=== PATIENT | male | born 1960 | race Hispanic/Latino ===

== ENCOUNTER 2016-05-23 15:08 | Emergency (ER) | payer SELFPAY ==
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
[2016-05-23 16:42] LABS: Alanine Aminotransferase 180 units/L (7-56); Albumin/Globulin Ratio 0.9 %; Alkaline Phosphatase 76 units/L (35-129); BUN/Creatinine Ratio 11.66; Bilirubin,Total 0.8 mg/dL (0.1-1.2); Blood Urea Nitrogen 7 mg/dL (9-20); Calcium 8.8 mg/dL (8.4-10.2); Carbon Dioxide 20 mmol/L (22-30); Chloride 106.9 mmol/L (98-107); Glucose 97 mg/dL (75-100); Potassium 4.3 mmol/L (3.6-5.0); Sodium 142 mmol/L (137-145); Total Protein 8.6 g/dL (6.3-8.2)
[2016-05-23 16:46] LABS: Anion Gap 19 mmol/L
[2016-05-23 17:04] LABS: Urine Drugs of Abuse Note Disclamer
[2016-05-23 17:14] LABS: Bilirubin,Urine NEG (Negative); Blood,Urine NEG (Negative); Ketones,Urine NEG (Negative); Leukocyte Esterase,Urine NEG (Negative); Nitrite,Urine NEG (Negative); Protein,Urine <15 mg/dL mg/dL (Negative); Urobilinogen,Urine < 2.0 mg/dL (<2.0)
--- NOTE | 2016-05-23 17:33 | Emergency Department Report ---
HPI - General Chief Complaint: Psych Time Seen by Provider: 05/23/16 15:44 - HPI HPI: Room 8 The patient is a 55-year-old male presenting with a chief complaint of homicidal ideation. The patient states he came to the emergency department because he wants to kill people. When asked how long he has felt this way the patient states "I've wanted to kill people since 2013." The patient states there is not one person in particularly he would like to kill but just "people" in general. Patient denies suicidal ideation but does state "I just want to give up." Patient states if he wanted to sleep and did not wake up will be okay with him. Patient denies any active attempts at harming himself but mentioned he did have a plan to overdose Location: Mental state Duration: [see above] Quality: Homicidal Severity: Severe Modifying factors: [see above] Context: [see above] Mode of transportation: [not driving] ED Past Medical Hx - Past Medical History Previous Medical History?: No Hx Psychiatric Treatment: Yes (schizophrenia, depression, anxiety) - Surgical History Past Surgical History?: No Additional Surgical History: Peptic ulcer surgery, esophagus repair, right lower extremity surgery from nail gun injury - Family History Family history: no significant - Social History Smoking Status: Former Smoker Substance Use Type: None (denies illicit drug use), Alcohol (several beers daily ) - Medications Home Medications: Home Medications Medication Instructions Recorded Confirmed Last Taken Type Venlafaxine [Effexor] 75 mg PO AMHY 02/25/13 05/23/16 02/25/13 History Venlafaxine HCl [Effexor Xr] 150 mg PO HS 05/23/16 05/23/16 Unknown History ED Review of Systems ROS: Stated complaint: MH EVAL Other details as noted in HPI Comment: All other systems reviewed and negative Constitutional: denies: chills, fever Eyes: denies: eye pain, eye discharge, vision change ENT: denies: ear pain, throat pain Respiratory: denies: cough, shortness of breath, wheezing Cardiovascular: denies: chest pain, palpitations Endocrine: no symptoms reported Gastrointestinal: denies: abdominal pain, nausea, diarrhea Genitourinary: denies: urgency, dysuria Musculoskeletal: denies: back pain, joint swelling, arthralgia Skin: denies: rash, lesions Neurological: denies: headache, weakness, paresthesias Psychiatric: homicidal thoughts, suicidal thoughts Hematological/Lymphatic: denies: easy bleeding, easy bruising Physical Exam - Physical Exam Vital Signs: Vital Signs 05/23/16 15:23 Pulse Rate 76 Respiratory 16 Rate Blood Pressure 131/91 O2 Sat by Pulse 98 Oximetry Physical Exam: GENERAL: The patient is well-developed well-nourished male sitting on stretcher not appearing to be in acute distress. [] HEENT: Normocephalic. Atraumatic. Extraocular motions are intact. Patient has moist mucous membranes. NECK: Supple. Trachea midline CHEST/LUNGS: Clear to auscultation. There is no respiratory distress noted. HEART/CARDIOVASCULAR: Regular. There is no tachycardia. There is no gallop rub or murmur. ABDOMEN: Abdomen is soft, nontender. Patient has normal bowel sounds. There is no abdominal distention. SKIN: There is no rash. There is no diaphoresis. NEURO: The patient is awake, alert, and oriented. The patient is cooperative. The patient has normal speech MUSCULOSKELETAL: There is no evidence of acute injury. ED Course Vital Signs 05/23/16 15:23 Pulse Rate 76 Respiratory 16 Rate Blood Pressure 131/91 O2 Sat by Pulse 98 Oximetry ED Medical Decision Making - Lab Data Result diagrams: 05/23/16 16:03 Laboratory Tests 05/23/16 05/23/16 05/23/16 16:03 16:03 16:03 Sodium 142 Potassium 4.3 Chloride 106.9 Carbon Dioxide 20 L Anion Gap 19 BUN 7 L Creatinine 0.6 L Estimated GFR > 60 BUN/Creatinine Ratio 11.66 Glucose 97 Calcium 8.8 Total Bilirubin 0.8 AST 257 H ALT 180 H Alkaline Phosphatase 76 Total Protein 8.6 H Albumin 4.0 Albumin/Globulin Ratio 0.9 TSH 3.090 Urine Color Urine Turbidity Urine pH Ur Specific [place] Urine Protein Urine Glucose (UA) Urine Ketones Urine Blood Urine Nitrite Urine Bilirubin Urine Urobilinogen Ur Leukocyte Esterase Urine WBC (Auto) Urine RBC (Auto) Salicylates Urine Opiates Screen Urine Methadone Screen Acetaminophen Ur Barbiturates Screen Ur Phencyclidine Scrn Ur Amphetamines Screen U Benzodiazepines Scrn Urine Cocaine Screen U Marijuana (THC) Screen Drugs of Abuse Note Plasma/Serum Alcohol 0.31 H 01/24/17 01/24/17 01/24/17 16:03 16:03 16:50 Sodium Potassium Chloride Carbon Dioxide Anion Gap BUN Creatinine Estimated GFR BUN/Creatinine Ratio Glucose Calcium Total Bilirubin AST ALT Alkaline Phosphatase Total Protein Albumin Albumin/Globulin Ratio TSH Urine Color Straw Urine Turbidity Clear Urine pH 5.0 Ur Specific [place] 1.002 L Urine Protein <15 mg/dl Urine Glucose (UA) Neg Urine Ketones Neg Urine Blood Neg Urine Nitrite Neg Urine Bilirubin Neg Urine Urobilinogen < 2.0 Ur Leukocyte Esterase Neg Urine WBC (Auto) 0.0 Urine RBC (Auto) 1.0 Salicylates < 0.3 L Urine Opiates Screen Urine Methadone Screen Acetaminophen < 15.0 Ur Barbiturates Screen Ur Phencyclidine Scrn Ur Amphetamines Screen U Benzodiazepines Scrn Urine Cocaine Screen U Marijuana (THC) Screen Drugs of Abuse Note Plasma/Serum Alcohol 05/23/16 16:50 Sodium Potassium Chloride Carbon Dioxide Anion Gap BUN Creatinine Estimated GFR BUN/Creatinine Ratio Glucose Calcium Total Bilirubin AST ALT Alkaline Phosphatase Total Protein Albumin Albumin/Globulin Ratio TSH Urine Color Urine Turbidity Urine pH Ur Specific [place] Urine Protein Urine Glucose (UA) Urine Ketones Urine Blood Urine Nitrite Urine Bilirubin Urine Urobilinogen Ur Leukocyte Esterase Urine WBC (Auto) Urine RBC (Auto) Salicylates Urine Opiates Screen Presumptive negative Urine Methadone Screen Presumptive negative Acetaminophen Ur Barbiturates Screen Presumptive negative Ur Phencyclidine Scrn Presumptive negative Ur Amphetamines Screen Presumptive negative U Benzodiazepines Scrn Presumptive negative Urine Cocaine Screen Presumptive negative U Marijuana (THC) Screen Presumptive negative Drugs of Abuse Note Disclamer Plasma/Serum Alcohol - Differential Diagnosis schizophrenia, homicidal ideation Critical care attestation.: If time is entered above; I have spent that time in minutes in the direct care of this critically ill patient, excluding procedure time. ED Disposition Clinical Impression: Homicidal ideation, Alcoholic hepatitis, Alcohol intoxication Disposition: DC/TX PSY HOSP/PSY UNIT Is pt being admited?: No Does the pt Need Aspirin: No Condition: Serious Time of Disposition: 17:37 (awaiting acceptance)
[2016-05-23] MEDS ORDERED: VITAMIN B-1 100 MG, FOLVITE 1 MG, INFUVITE 10 ML, MAGNESIUM SULFATE 2 GM in NACL 0.9% 1... IV ONE (19:16)
--- NOTE | 2016-05-25 19:15 | Emergency Department Report ---
Blank Doc - Documentation Documentation: Vital Signs - 24 hr 05/24/16 05/25/16 05/25/16 19:55 10:28 10:56 Temperature 98.2 F 97.7 F Pulse Rate 72 57 L Respiratory 16 18 18 Rate Blood Pressure 132/79 114/94 [Left] O2 Sat by Pulse 96 98 98 Oximetry Vital signs reviewed. No events reported. Awaiting placement
--- NOTE | 2016-05-27 18:09 | Event Note ---
Date: 05/27/16 No events. Patient awaiting psychiatric placement. Vital Signs 05/23/16 05/23/16 05/23/16 15:23 17:26 18:17 Temperature 98.4 F Pulse Rate 76 65 Respiratory 16 20 14 Rate Blood Pressure 131/91 Blood Pressure 140/62 [Left] O2 Sat by Pulse 98 98 100 Oximetry 05/23/16 05/23/16 05/23/16 19:15 19:30 19:46 Temperature Pulse Rate 50 L 63 57 L Respiratory 12 15 14 Rate Blood Pressure Blood Pressure [Left] O2 Sat by Pulse 96 93 93 Oximetry 05/23/16 05/23/16 05/23/16 19:55 20:00 20:16 Temperature 97.6 F Pulse Rate 66 58 L 69 Respiratory 18 14 15 Rate Blood Pressure Blood Pressure 113/76 [Left] O2 Sat by Pulse 96 93 93 Oximetry 05/23/16 05/23/16 05/23/16 20:30 20:46 21:00 Temperature Pulse Rate 58 L 61 56 L Respiratory 14 14 15 Rate Blood Pressure Blood Pressure [Left] O2 Sat by Pulse 94 89 93 Oximetry 05/23/16 05/23/16 05/23/16 21:16 21:30 21:46 Temperature Pulse Rate 64 69 71 Respiratory 14 14 15 Rate Blood Pressure Blood Pressure [Left] O2 Sat by Pulse 89 89 89 Oximetry 05/23/16 05/23/16 05/23/16 22:00 22:16 22:30 Temperature Pulse Rate 68 65 68 Respiratory 14 14 14 Rate Blood Pressure Blood Pressure [Left] O2 Sat by Pulse 92 92 93 Oximetry 05/23/16 05/23/16 05/23/16 22:46 23:00 23:16 Temperature Pulse Rate 64 63 63 Respiratory 14 14 15 Rate Blood Pressure Blood Pressure [Left] O2 Sat by Pulse 89 91 89 Oximetry 05/23/16 05/23/16 05/24/16 23:30 23:46 00:00 Temperature Pulse Rate 65 73 70 Respiratory 14 14 14 Rate Blood Pressure Blood Pressure [Left] O2 Sat by Pulse 92 91 92 Oximetry 05/24/16 05/24/16 05/24/16 00:16 00:30 00:46 Temperature Pulse Rate 76 79 73 Respiratory 17 18 19 Rate Blood Pressure Blood Pressure [Left] O2 Sat by Pulse 93 92 93 Oximetry 01/05/24/16 05/24/16 01:00 01:15 01:30 Temperature Pulse Rate 74 66 65 Respiratory 15 17 19 Rate Blood Pressure 132/78 119/71 Blood Pressure [Left] O2 Sat by Pulse 92 94 93 Oximetry 05/24/16 05/24/16 05/24/16 01:45 02:00 02:15 Temperature Pulse Rate Respiratory 14 16 12 Rate Blood Pressure 121/75 128/76 120/75 Blood Pressure [Left] O2 Sat by Pulse 92 95 92 Oximetry 05/24/16 05/24/16 05/24/16 02:30 02:45 03:00 Temperature Pulse Rate Respiratory 12 14 14 Rate Blood Pressure 114/65 118/64 111/66 Blood Pressure [Left] O2 Sat by Pulse 90 89 92 Oximetry 05/24/16 05/24/16 05/24/16 03:15 03:30 03:45 Temperature Pulse Rate Respiratory 17 14 16 Rate Blood Pressure 116/61 116/61 112/72 Blood Pressure [Left] O2 Sat by Pulse 91 90 89 Oximetry 05/24/16 05/24/16 05/24/16 04:00 04:15 04:30 Temperature Pulse Rate 77 Respiratory 19 16 17 Rate Blood Pressure 131/76 115/70 128/73 Blood Pressure [Left] O2 Sat by Pulse 90 91 90 Oximetry 05/24/16 05/24/16 05/24/16 04:45 05:00 05:15 Temperature Pulse Rate 73 65 62 Respiratory 14 16 17 Rate Blood Pressure 123/69 126/69 126/67 Blood Pressure [Left] O2 Sat by Pulse 92 91 Oximetry 05/24/16 05/24/16 05/24/16 05:30 05:45 05:58 Temperature Pulse Rate 63 67 61 Respiratory 16 19 16 Rate Blood Pressure 119/71 126/76 126/76 Blood Pressure [Left] O2 Sat by Pulse 91 93 93 Oximetry 05/24/16 05/24/16 05/24/16 06:00 06:15 06:30 Temperature Pulse Rate 65 64 63 Respiratory 16 25 H 15 Rate Blood Pressure 122/71 126/76 114/78 Blood Pressure [Left] O2 Sat by Pulse 92 95 93 Oximetry 05/24/16 05/24/16 05/24/16 06:45 07:00 07:15 Temperature Pulse Rate 64 68 64 Respiratory 16 18 16 Rate Blood Pressure 131/78 127/74 126/71 Blood Pressure [Left] O2 Sat by Pulse 96 Oximetry 05/24/16 05/24/16 05/24/16 07:30 07:45 07:54 Temperature 97.8 F Pulse Rate 67 85 97 H Respiratory 19 20 18 Rate Blood Pressure 130/71 115/76 Blood Pressure 115/76 [Left] O2 Sat by Pulse 94 97 Oximetry 05/24/16 05/24/16 05/24/16 07:56 08:00 08:15 Temperature Pulse Rate 74 67 Respiratory 16 20 21 Rate Blood Pressure 122/79 128/73 Blood Pressure [Left] O2 Sat by Pulse 97 94 95 Oximetry 05/24/16 05/24/16 05/24/16 08:30 08:45 09:00 Temperature Pulse Rate 68 61 65 Respiratory 19 19 18 Rate Blood Pressure 124/74 127/74 134/76 Blood Pressure [Left] O2 Sat by Pulse 91 91 98 Oximetry 05/24/16 05/24/16 05/24/16 09:15 09:30 09:45 Temperature Pulse Rate 63 68 66 Respiratory 20 21 20 Rate Blood Pressure 128/72 130/79 128/79 Blood Pressure [Left] O2 Sat by Pulse 93 91 94 Oximetry 05/24/16 05/24/16 05/24/16 10:00 10:15 10:30 Temperature Pulse Rate 62 65 76 Respiratory 19 21 17 Rate Blood Pressure 125/81 134/81 130/73 Blood Pressure [Left] O2 Sat by Pulse 94 93 93 Oximetry 05/24/16 05/24/16 05/24/16 10:45 11:00 11:15 Temperature Pulse Rate 75 67 72 Respiratory 17 18 20 Rate Blood Pressure 124/78 139/76 133/70 Blood Pressure [Left] O2 Sat by Pulse 96 90 93 Oximetry 05/24/16 05/24/16 05/24/16 11:30 11:45 12:00 Temperature Pulse Rate 63 80 79 Respiratory 16 19 14 Rate Blood Pressure 129/75 134/76 134/76 Blood Pressure [Left] O2 Sat by Pulse 94 96 93 Oximetry 05/24/16 05/24/16 05/24/16 12:14 12:16 12:30 Temperature Pulse Rate 82 75 85 Respiratory 20 21 20 Rate Blood Pressure 124/74 134/76 134/76 Blood Pressure [Left] O2 Sat by Pulse 95 94 93 Oximetry 05/24/16 05/24/16 05/24/16 13:40 18:03 19:55 Temperature 98.1 F 98.1 F 98.2 F Pulse Rate 89 78 72 Respiratory 18 18 16 Rate Blood Pressure Blood Pressure 119/82 129/81 132/79 [Left] O2 Sat by Pulse 97 97 96 Oximetry 05/25/16 05/25/16 05/25/16 10:28 10:56 20:00 Temperature 97.7 F 98.3 F Pulse Rate 57 L 73 Respiratory 18 18 18 Rate Blood Pressure Blood Pressure 114/94 134/95 [Left] O2 Sat by Pulse 98 98 99 Oximetry 05/26/16 05/26/16 05/27/16 11:11 11:14 07:20 Temperature 98.2 F 99.0 F Pulse Rate 67 57 L Respiratory 18 18 14 Rate Blood Pressure Blood Pressure 122/91 125/80 [Left] O2 Sat by Pulse 99 100 95 Oximetry 05/27/16 05/27/16 07:35 08:18 Temperature 98.3 F Pulse Rate 57 L Respiratory 14 14 Rate Blood Pressure Blood Pressure 125/80 [Left] O2 Sat by Pulse 95 Oximetry
--- NOTE | 2016-05-28 17:13 | Emergency Department Report ---
Blank Doc - Documentation Documentation: Vital signs reviewed. Patient has remained, calm requiring no intervention. Patient continues to await placement.
[2016-05-29 08:59] VITALS: BP 110/70
[2016-05-29] MEDS ORDERED: EFFEXOR PO SCH (22:00)
== END 2016-05-29 17:40 ==
LOC: ED 15:08 → EEVIPCON 15:08 → ED 05-29 17:40
DX: R45.850 Homicidal ideations (principal); F10.129 Alcohol abuse with intoxication, unspecified; K70.10 Alcoholic hepatitis without ascites; F20.9 Schizophrenia, unspecified; F32.9 Major depressive disorder, single episode, unspecified; F41.9 Anxiety disorder, unspecified; Z87.891 Personal history of nicotine dependence
CPT/HCPCS: 36415; 80048; 80053; 80307; 81001; 84443; 96365; 96366; 99285; G0480; J3411; J3475; J7030; 80320

== ENCOUNTER 2016-08-01 10:42 | Emergency (ER) | payer SELFPAY ==
[2016-08-01 11:52] VITALS: BP 128/89
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
== END 2016-08-01 16:00 | disposition left against medical advice (07) ==
LOC: ED 10:42
DX: R04.0 Epistaxis (principal); F20.9 Schizophrenia, unspecified; F41.9 Anxiety disorder, unspecified; F32.9 Major depressive disorder, single episode, unspecified; Z53.21 Procedure and treatment not carried out due to patient leaving prior to being seen by health care provider
CPT/HCPCS: 70450; 70486; 72125

== ENCOUNTER 2016-08-09 20:09 | Emergency (ER) | payer OTHER ==
[2016-08-09] MEDS ORDERED: AFRIN NS ONE (20:55)
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
[2016-08-09 21:46] VITALS: BP 118/70
== END 2016-08-09 21:00 | disposition home or self-care (01) ==
LOC: ED 20:09 → EEVIPCON 20:09 → ED 21:00
DX: R04.0 Epistaxis (principal); J32.8 Other chronic sinusitis; S09.90XD Unspecified injury of head, subsequent encounter; F32.9 Major depressive disorder, single episode, unspecified; F41.9 Anxiety disorder, unspecified; F20.9 Schizophrenia, unspecified
CPT/HCPCS: 99283

== ENCOUNTER 2019-01-14 20:49 | Emergency (ER) | payer SELFPAY ==
[2019-01-14 21:09] VITALS: BP 119/76
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
--- NOTE | 2019-01-14 23:33 | XRay Report ---
RIGHT RIBS 4 VIEWS INDICATION / CLINICAL INFORMATION: tenderness ribs 4-6, r/o fx COMPARISON: None available. FINDINGS: BONES / JOINT(S): There are fractures of the right fifth, sixth, and seventh ribs which are slightly displaced.. SOFT TISSUES: No significant abnormality. ADDITIONAL FINDINGS: No pneumothorax is seen. Calcified lymph nodes noted in the mediastinum. There i s minimal dependent atelectasis on the right Signer Name: Scott Chavarria MD Signed: 01/14/2019 11:29 PM Workstation Name: [id number]
[2019-01-15] MEDS ORDERED: NORCO 5/325 PO ONE (00:20)
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
== END 2019-01-15 01:38 | disposition home or self-care (01) ==
LOC: ED 20:49
DX: S22.41XB Multiple fractures of ribs, right side, initial encounter for open fracture (principal); F17.200 Nicotine dependence, unspecified, uncomplicated; F31.9 Bipolar disorder, unspecified; F41.9 Anxiety disorder, unspecified; Z98.890 Other specified postprocedural states; Y08.89XA Assault by other specified means, initial encounter; Y93.89 Activity, other specified; Y92.89 Other specified places as the place of occurrence of the external cause; Y99.8 Other external cause status